=== PATIENT | female | born 1990 | race Caucasian/White ===

== ENCOUNTER 2019-08-29 15:25 | Emergency (ER) | payer SELFPAY ==
--- NOTE | 2019-08-29 15:29 | XRR_ITS ---
PROCEDURE INFORMATION: Exam: XR Right Hand Exam date and time: 08/29/2019 3:29 PM Age: 28 years old Clinical indication: Pain; Hand; Right; Patient HX: Patient punched a wall; Additional info: Injury TECHNIQUE: Imaging protocol: XR Right hand. Views: 3 or more views. COMPARISON: No relevant prior studies available. FINDINGS: Bones/joints: Acute fracture of the distal fifth metacarpal with volar angulation of the distal fracture fragment (Boxer's fracture). Soft tissues: Normal. XR/XR hand RT min 3V* [id number] IMPRESSION: Acute fracture of the distal fifth metacarpal with volar angulation of the distal fracture fragment (Boxer's fracture).
[2019-08-29 15:31] VITALS: BP 127/79; PULSE 75; RESP 16; TEMP 36.5; O2SAT 98; BMI 19.0
--- NOTE | 2019-08-29 15:34 | XRR_ITS ---
PROCEDURE INFORMATION: Exam: XR Right Forearm Exam date and time: 08/29/2019 3:50 PM Age: 28 years old Clinical indication: Pain; Lower or forearm; Right; Patient HX: Patient punched a wall; Additional info: Injury TECHNIQUE: Imaging protocol: XR Right forearm. Views: 2 views. COMPARISON: No relevant prior studies available. FINDINGS: Bones/joints: Normal. Soft tissues: Normal. XR/XR forearm RT 2V [id number] IMPRESSION: No acute findings.
--- NOTE | 2019-08-29 15:35 | ED_ITS ---
HPI - Extremity Injury (Upper) General: Chief Complaint: Extremity Injury, Upper Stated Complaint: RIGHT HAND PAIN Time Seen by Provider: 08/29/19 15:29 Source: patient Mode of arrival: ambulatory Limitations: no limitations History of Present Illness: HPI narrative: 28-year-old female who states she was angry 30 minutes ago and punched a wall. She has right hand pain and fore arm pain since then. States her pain is a 6 out of 10. She denies any other injuries. Pain is worse with movement and improved with rest. MD complaint: injury to: right Onset (ago): minute(s) Other Extremity Injury: Right: hand Handedness: right Severity: moderate Relieving factors: none Exacerbating factors: none Associated symptoms: Denies neck pain Review of Systems Const: Denies: fever, chills, body aches or change in appetite Eyes: Denies: blurry vision or eye discomfort ENMT: Denies: throat pain or dental pain Card: Denies: chest pain Resp: Denies: shortness of breath GI: Denies: abdominal pain, nausea, vomiting or diarrhea : Denies: painful urination Musc: Reports: extremity pain; Denies: neck pain or back pain Skin/Breast: Denies: rash Neuro: Denies: headache Psych: Denies: depression Lucas/Lymph: Denies: easy bruising All/Imm: Denies: hives PFSH ED PFSH: Social History Smoking and tobacco status: current every day smoker Physical Exam Const: COMMON NORMALS: no apparent distress, oriented x3 and healthy appearing HENMT: COMMON NORMALS: normocephalic and head/scalp atraumatic HEAD & SCALP: normocephalic and atraumatic Eye: COMMON NORMALS: PERRL and EOMs intact bilaterally PUPIL: Yes PERRL Neck/C-Spine: COMMON NORMALS: full ROM and supple Chest: COMMONS NORMALS: inspection of chest normal and palpation of chest normal Resp: COMMON NORMALS: normal respiratory effort, no retractions, no use of accessory muscles and clear to auscultation bilaterally AUSCULTATION: clear to auscultation bilaterally Cardio: COMMON NORMALS: regular rate, regular rhythm and no murmurs RATE: regular rate RHYTHM: regular rhythm GI: COMMON NORMALS: normal to inspection, nondistended, normoactive bowel sounds, soft to palpation, non-tender and no masses PALPATION: Yes soft Extremity: COMMON NORMALS: full ROM NARRATIVE EXTREMITY EXAM: Tenderness along with swelling to right lateral hand and forearm Neuro: COMMON NORMALS: oriented x3, moves all extremities and no focal motor deficits Psych: COMMON NORMALS: mental status grossly normal, thought process normal and cooperative THOUGHT PROCESS: normal thought process Skin: COMMON NORMALS: no rashes or lesions noted and no wounds GENERAL SKIN EXAM: no rashes or lesions noted Course Vital Signs: Vital signs: Vital Signs Temperature 97.7 F 08/29/19 15:31 Pulse Rate 75 08/29/19 15:31 Respiratory Rate 16 08/29/19 15:31 Blood Pressure 127/79 08/29/19 15:31 Pulse Oximetry 98 08/29/19 15:31 MDM - Extremity Injury (Upper) MDM Narrative: Medical decision making narrative: Patient presents with a boxer's fracture. Will place an ulnar gutter splint and she is to follow-up with orthopedics. Patient is well-appearing here. Imaging Data^: xr hand: Attestation: I personally reviewed and interpreted this imaging study as follows: My impression: fifth metacarpal boxer fx Discharge Plan Discharge Patient Disposition: Home, Self-Care Clinical Impression: Boxer's fracture Qualifiers: Encounter type: initial encounter Fracture type: closed Qualified Code(s): S62.339A - Displaced fracture of neck of unspecified metacarpal bone, initial encounter for closed fracture Condition: Stable Prescriptions: [place] 5-325 mg tablet 1 tab PO Q6H PRN (Reason: pain) Qty: 10 RF: 0 No Action No Known Home Medications RF: 0 Discharge Orders: Discharge Order (Routine); Ordered 08/29/19 Ordered By: Tracie Thornton Referrals: Hardik Wu DO [Physician] - 4-7 days Discharge Diet: Advance as tolerated Discharge Activity: Resume usual activity Patient Instructions: Boxer Fracture (ED) Coding Level of Care Code ED 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
[2019-08-29] MEDS: HYDROcodone-acetaminophen 7.5-325 mg Tablet 1 TAB PO (15:40)
[2019-08-29 16:32] VITALS: BP 119/82; PULSE 76; RESP 16; O2SAT 97
--- NOTE | 2019-09-01 09:19 | DCPLANNER ---
manager application development had message to schedule a follow up appointment for patient with ortho. manager application development called the ortho clinic, spoke with Kateryna, gave clinic patients information. manager application development was told that patients information would be printed and reviewed. Clinic will call protective services case worker and patient with appointment information.
--- NOTE | 2019-09-02 14:08 | DCPLANNER ---
Patient had a follow up appointment scheduled for 09.01.[address] Healy. Patient did attend the appointment.
== END 2019-08-29 16:32 | disposition home or self-care (01) ==
LOC: ER 16:16
PROVIDERS: Emergency Provider Emergency Medicine
DX: S62.336A Displaced fracture of neck of fifth metacarpal bone, right hand, initial encounter for closed fracture (principal); W22.09XA Striking against other stationary object, initial encounter; F17.210 Nicotine dependence, cigarettes, uncomplicated
CPT/HCPCS: 12345; 29125; 73090; 73130; 99281; 99283

== ENCOUNTER 2019-09-01 15:26 | Outpatient (CLI) | payer SELFPAY | END 2019-09-01 15:27 | disposition home or self-care (01) | LOC: SPT 15:26 | PROVIDERS: Visit Provider Orthopaedic Surgery | DX: Z46.89 Encounter for fitting and adjustment of other specified devices (principal); S62.336D Displaced fracture of neck of fifth metacarpal bone, right hand, subsequent encounter for fracture with routine healing; X58.XXXD Exposure to other specified factors, subsequent encounter | CPT/HCPCS: L3984 ==